=== PATIENT | female | born 1960 | race Caucasian/White ===

== ENCOUNTER 2019-04-16 11:24 | Inpatient (IN) | payer MEDICAID ==
[~2019-04-16] VITALS: Ht 170.2 cm; Wt 96.4 kg
[~2019-04-16 11:24] MED LIST: ESCI10TA61 PO; FAMO40TA7 PO; GEMF600T89 PO; GLIP5TAB13 PO; HYDR-4353 PO; LANS30CA56 PO; MEDR2.5T PO; METF500T PO; PRAV40TA3 PO; PRAZ1CAP5 PO; QUET-1 PO; QUET25TA PO; SAXA5TAB PO
--- NOTE | 2019-04-16 11:30 | NUR ---
PER DR. FOWLER, LOWER THE HEPARIN BOLUS FROM 1100 UNITS/HR TO 900 UNITS/HR, AND ADD THE DVT PTT FOR 1543.
[2019-04-16] MEDS ORDERED: fentaNYL/PF 50MCG/1 ML 2ML syringe IV ONE ×2 (12:05→13:10)
[2019-04-16] MEDS ORDERED: iohexol 350MG/ML 100ml bottle IV ONE (12:19)
[2019-04-16] MEDS ORDERED: iohexol 350 MG/ML 50ML vial IV ONE (12:19)
[2019-04-16 12:43] LABS: BASOPHILS # (AUTO) 0.1 X10'3 (0-0.2); BASOPHILS % (AUTO) 0.6 % (0-1); EOSINOPHILS # (AUTO) 0.2 X10'3 (0-0.9); EOSINOPHILS % (AUTO) 1.7 % (0-6); HEMATOCRIT 38.1 % (35.0-45.0); HEMOGLOBIN 13.3 g/dl (12.0-16.0); LYMPHOCYTES # (AUTO) 3.2 X10'3 (1.1-4.8); LYMPHOCYTES % (AUTO) 31.6 % (21-51); MEAN CORPUSCULAR HEMOGLOBIN 31.7 PG (27.0-31.0); MEAN CORPUSCULAR VOLUME 90.7 FL (78-98); MEAN PLATELET VOLUME 7.7 FL (7.4-10.4); MONOCYTES # (AUTO) 0.7 X10'3 (0-0.9); MONOCYTES % (AUTO) 6.6 % (2-12); NEUTROPHILS % (AUTO) 59.5 % (42-75); PLATELET COUNT 156 X10'3 (140-440); RED BLOOD COUNT 4.19 X10'6 (4.20-5.60); RED CELL DISTRIBUTION WIDTH 12.3 % (11.5-14.5); WHITE BLOOD COUNT 10.1 X10'3 (4.5-11.0)
[2019-04-16 12:59] LABS: ALANINE AMINOTRANSFERASE 26 U/L (12-78); ALBUMIN 2.4 G/DL (3.4-5.0); ALBUMIN/GLOBULIN RATIO 0.6 (1.1-1.5); ALKALINE PHOSPHATASE 100 IU/L (46-116); ANION GAP 7 (8-16); ASPARTATE AMINO TRANSFERASE 24 U/L (10-37); BILIRUBIN,TOTAL 0.6 MG/DL (0.1-1.0); BLOOD UREA NITROGEN 15 MG/DL (7-18); BUN/CREATININE RATIO 16.7 (6.6-38.0); CALCIUM 7.8 MG/DL (8.5-10.1); CHLORIDE 104 MMOL/L (99-107); CREATINE KINASE 388 U/L (26-192); GLUCOSE 206 MG/DL (70-104); POTASSIUM 3.9 MMOL/L (3.5-5.1); SODIUM 137 MMOL/L (135-145); TOTAL CARBON DIOXIDE 26.3 MMOL/L (24-32); TOTAL PROTEIN 6.4 G/DL (6.4-8.2); eGFR 64 ML/MIN
[2019-04-16] MEDS ORDERED: heparin 25,000 UNIT/250ml bag 250 ML IV SCH (13:19)
[2019-04-16] MEDS ORDERED: heparin 10,000 units/1 ML INJ IV ONE ×2 (13:20→13:45)
[2019-04-16] MEDS ORDERED: heparin 10,000 units/1 ML INJ IV PRN (13:20)
[2019-04-16] MEDS: fentaNYL/PF 50MCG/1 ML 2ML syringe IV PRN ×9 (13:38→22:57)
[2019-04-16] MEDS ORDERED: fentaNYL/PF 50MCG/1 ML 2ML syringe IV PRN (15:55)
[2019-04-16] MEDS ORDERED: heparin 1,000 UNITS/NS 500ml 500 ML ICATH ONE (15:55)
[2019-04-16] MEDS ORDERED: LIDOcaine 1%/PF 5ML 10 MG/ML VIAL SQ ONE (15:55)
[2019-04-16] MEDS ORDERED: LIDOcaine 1%/PF 5ML 10 MG/ML VIAL ONE (16:03)
[2019-04-16] MEDS ORDERED: midazolam 2 mg/2 ml injection ONE ×3 (16:03→17:35)
[2019-04-16] MEDS ORDERED: heparin 1,000 UNITS/NS 500ml 500 ML ONE ×2 (16:03→17:28)
[2019-04-16] MEDS ORDERED: fentaNYL/PF 50MCG/1 ML 2ML syringe ONE ×3 (16:03→17:35)
[2019-04-16] MEDS ORDERED: iohexol 300mg/ml 100ml inj. ONE (16:03)
--- NOTE | 2019-04-16 16:08 | NUR ---
SISTER: JABARI: [phone]
[2019-04-16] MEDS ORDERED: diphenhydrAMINE 50 mg/ml inj ONE (16:34)
[2019-04-16] MEDS ORDERED: tPA-cathflo 2 MG/2 ml IV flush ONE (17:28)
[2019-04-16] MEDS: heparin 1,000 UNITS/NS 500ml 500 ML IV SCH ×2 (17:53→20:51)
[2019-04-16] MEDS ORDERED: heparin 1,000 UNITS/NS 500ml 500 ML IV SCH (18:04)
--- NOTE | 2019-04-16 19:00 | NUR ---
Patient in room CICU 2011. I have received report from Shira DAVIS and had the opportunity to ask questions and assume patient care. Patient arrived VIA bed , IR nurses at bedside. No doctors orders in the system. Awaiting MD orders at this time.
--- NOTE | 2019-04-16 19:30 | NUR ---
Patient painful. Awaiting MD orders. At bedside with patient.
--- NOTE | 2019-04-16 19:45 | NUR ---
Carlito Vaca at bedside to assess patient.
[2019-04-16] MEDS ORDERED: potassium CL 10mEq/100ml bag 100 ML IV PRN (19:50)
[2019-04-16] MEDS ORDERED: ondansetron/PF 4mg/2ml inj IV PRN (19:50)
[2019-04-16] MEDS ORDERED: potassium Cl 20 mEq SR tablet PO PRN (19:50)
[2019-04-16] MEDS ORDERED: naloxone 0.4 mg/ml inj IV PRN (19:50)
[2019-04-16] MEDS ORDERED: magnesium hydroxide 30ml (MOM) UD suspension PO PRN (19:50)
[2019-04-16] MEDS ORDERED: acetaminophen 325mg tablet PO PRN (19:50)
[2019-04-16] MEDS ORDERED: proCHLORperazine 10 MG/2 ml inj IV PRN (19:50)
[2019-04-16] MEDS: K, MAG and/or Phos replacement - Verify level? MC SCH (19:50)
[2019-04-16 20:00] VITALS: BP 146/104
[2019-04-16] MEDS ORDERED: dextrose 50%-water 50ml dispensing syringe IV PRN ×2 (20:10)
[2019-04-16] MEDS ORDERED: dextrose ORAL solution 15 GM/59 ML bottle PO PRN ×2 (20:10)
[2019-04-16] MEDS ORDERED: MESSAGE TO PHARMACY PO ONE (20:10)
[2019-04-16] MEDS ORDERED: glucagon, human recombinant 1mg kit SUBCUT PRN (20:10)
[2019-04-16] MEDS: tPA-cathflo 2mg/2ml IV flush 4 MG in normal saline 100ml IV soln 100 ML ICATH SCH (20:49)
[2019-04-16 21:00] VITALS: BP 124/80
[2019-04-16] MEDS: insulin glargine (Lantus) pen - multi-dose SQ SCH (21:00)
[2019-04-16] MEDS ORDERED: quetiapine 100mg tablet PO SCH (21:00)
--- NOTE | 2019-04-16 21:00 | NUR ---
Patient has refused fuentes cath at this time.
[2019-04-16 21:32] LABS: HEMATOCRIT 38.3 % (35.0-45.0); HEMOGLOBIN 13.6 g/dl (12.0-16.0); MEAN CORPUSCULAR HEMOGLOBIN 32.4 PG (27.0-31.0); MEAN CORPUSCULAR HGB CONC 35.4 g/dL (33.0-36.5); MEAN CORPUSCULAR VOLUME 91.4 FL (78-98); MEAN PLATELET VOLUME 7.9 FL (7.4-10.4); PLATELET COUNT 133 X10'3 (140-440); RED BLOOD COUNT 4.19 X10'6 (4.20-5.60); RED CELL DISTRIBUTION WIDTH 12.4 % (11.5-14.5); WHITE BLOOD COUNT 9.9 X10'3 (4.5-11.0)
[2019-04-16 22:00] VITALS: BP 144/83
[2019-04-16 23:00] VITALS: BP 124/88
[2019-04-17] VITALS (22 sets, daily range): BP systolic 115–168; BP diastolic 74–96
[2019-04-17] MEDS: tPA-cathflo 2mg/2ml IV flush 4 MG in normal saline 100ml IV soln 100 ML ICATH SCH ×4 (01:26→22:46)
[2019-04-17] MEDS: fentaNYL/PF 50MCG/1 ML 2ML syringe IV PRN ×15 (01:29→23:30)
[2019-04-17 03:12] LABS: PARTIAL THROMBOPLASTIN TIME 28 SECONDS (22-32)
[2019-04-17 03:15] LABS: ALANINE AMINOTRANSFERASE 27 U/L (12-78); ALBUMIN 2.3 G/DL (3.4-5.0); ALBUMIN/GLOBULIN RATIO 0.6 (1.1-1.5); ALKALINE PHOSPHATASE 104 IU/L (46-116); ANION GAP 6 (8-16); ASPARTATE AMINO TRANSFERASE 29 U/L (10-37); BILIRUBIN,TOTAL 0.7 MG/DL (0.1-1.0); BLOOD UREA NITROGEN 9 MG/DL (7-18); CALCIUM 7.8 MG/DL (8.5-10.1); CHLORIDE 106 MMOL/L (99-107); CREATININE 0.82 MG/DL (0.40-0.90); GLUCOSE 241 MG/DL (70-104); MAGNESIUM 1.3 MG/DL (1.5-2.4); PHOSPHORUS 2.7 MG/DL (2.3-4.5); POTASSIUM 3.7 MMOL/L (3.5-5.1); SODIUM 139 MMOL/L (135-145); TOTAL CARBON DIOXIDE 26.8 MMOL/L (24-32); TOTAL PROTEIN 6.1 G/DL (6.4-8.2); eGFR 71 ML/MIN
--- NOTE | 2019-04-17 03:18 | NUR ---
Patient has been agitated and restless, complaining of pain most of the night. When nurse told the patient that they would be there in a minute because they were in another room pt stated to "Fuck Off" . Patient states that she hasn't been getting pain medication. Patient has been multiple times per MD order. Patient states that she wants to be medicated with pain medication prior to anyone touching her foot.
[2019-04-17 03:22] LABS: BASOPHILS % (AUTO) 0.3 % (0-1); EOSINOPHILS # (AUTO) 0.1 X10'3 (0-0.9); EOSINOPHILS % (AUTO) 0.8 % (0-6); HEMATOCRIT 37.3 % (35.0-45.0); HEMOGLOBIN 13.1 g/dl (12.0-16.0); LYMPHOCYTES % (AUTO) 22.6 % (21-51); MEAN CORPUSCULAR HEMOGLOBIN 32.2 PG (27.0-31.0); MEAN CORPUSCULAR VOLUME 91.9 FL (78-98); MEAN PLATELET VOLUME 7.6 FL (7.4-10.4); MONOCYTES # (AUTO) 0.7 X10'3 (0-0.9); MONOCYTES % (AUTO) 7.6 % (2-12); NEUTROPHILS % (AUTO) 68.7 % (42-75); PLATELET COUNT 129 X10'3 (140-440); RED BLOOD COUNT 4.06 X10'6 (4.20-5.60); RED CELL DISTRIBUTION WIDTH 12.6 % (11.5-14.5); WHITE BLOOD COUNT 8.7 X10'3 (4.5-11.0)
--- NOTE | 2019-04-17 04:19 | NUR ---
Pt thrashing around in bed, attempting to sit up. pt complaining about pt care and want her let foot wrapped with a lissa bandage. Educated patient on the importance of laying flat and not bending with sheath in.
[2019-04-17] MEDS: heparin 1,000 UNITS/NS 500ml 500 ML IV SCH ×2 (04:33→18:16)
--- NOTE | 2019-04-17 05:22 | NUR ---
Patient attempting to sit up in bed. Educated on risks of sitting up with sheath in. Patient states " I know I can bleed to and I wish I would!!" Patient complaining of pain. Medicated for pain per MD order.
--- NOTE | 2019-04-17 06:25 | NUR ---
Problems reprioritized. Patient report given, questions answered & plan of care reviewed with Suzy DAVIS.
[2019-04-17] MEDS: pantoprazole 40 MG vial IV SCH (07:11)
[2019-04-17] MEDS: ESCITALOPRAM OXALATE 5 MG TABLET PO SCH (07:12)
[2019-04-17] MEDS: K, MAG and/or Phos replacement - Verify level? MC SCH (07:13)
[2019-04-17] MEDS ORDERED: medroxyprogesterone acet. 2.5mg tablet PO SCH (08:00)
[2019-04-17] MEDS ORDERED: gemfibrozil 600mg tablet PO SCH (08:00)
[2019-04-17] MEDS ORDERED: QUEtiapine 25mg tablet PO SCH (08:00)
[2019-04-17] MEDS ORDERED: prazosin 1mg capsule PO SCH (08:00)
[2019-04-17] MEDS: insulin Lispro (HumaLOG) vial - multi-dose SQ SCH ×2 (08:43→15:33)
[2019-04-17 09:29] LABS: HEMATOCRIT 36.9 % (35.0-45.0); HEMOGLOBIN 12.9 g/dl (12.0-16.0); MEAN CORPUSCULAR HGB CONC 34.9 g/dL (33.0-36.5); MEAN CORPUSCULAR VOLUME 91.5 FL (78-98); PLATELET COUNT 126 X10'3 (140-440); RED BLOOD COUNT 4.04 X10'6 (4.20-5.60); RED CELL DISTRIBUTION WIDTH 12.6 % (11.5-14.5); WHITE BLOOD COUNT 8.9 X10'3 (4.5-11.0)
[2019-04-17] MEDS ORDERED: iohexol 300mg/ml 100ml inj. ONE (13:01)
[2019-04-17] MEDS ORDERED: midazolam 2 mg/2 ml injection ONE (14:13)
[2019-04-17] MEDS ORDERED: diphenhydrAMINE 50 mg/ml inj ONE (14:13)
[2019-04-17] MEDS ORDERED: fentaNYL/PF 50MCG/1 ML 2ML syringe ONE (14:14)
--- NOTE | 2019-04-17 16:08 | NUR ---
DM consult, Hgb A1c is 9.3%. Patient needs written DM education handout with verbal review and referral to outpatient DM education class on Wednesday. Attempted bedside visit, patient was sedated s/p procedure. Will provide education prior to discharge. Addendum: 04/17/19 at [address] Amended: Links added.
[2019-04-17] MEDS ORDERED: ARIP10TA17 PO (16:28)
[2019-04-17] MEDS ORDERED: PRIM50TA3 PO (16:34)
[2019-04-17] MEDS ORDERED: CYAN-51 PO (16:34)
[2019-04-17] MEDS ORDERED: TIOT4MIS2 IH (16:34)
[2019-04-17] MEDS ORDERED: ALBU1.257 NEB (16:34)
[2019-04-17] MEDS ORDERED: CHOL500061 PO (16:38)
[2019-04-17 16:45] LABS: HEMATOCRIT 37.7 % (35.0-45.0); MEAN CORPUSCULAR HGB CONC 34.5 g/dL (33.0-36.5); MEAN CORPUSCULAR VOLUME 92.6 FL (78-98); MEAN PLATELET VOLUME 8.1 FL (7.4-10.4); PLATELET COUNT 121 X10'3 (140-440); RED BLOOD COUNT 4.08 X10'6 (4.20-5.60); RED CELL DISTRIBUTION WIDTH 12.5 % (11.5-14.5); WHITE BLOOD COUNT 9.4 X10'3 (4.5-11.0)
--- NOTE | 2019-04-17 18:45 | NUR ---
RN Note -Attempted to assess pulses with Doppler after explaining procedure to pt. Pt yelled to stop touching her. Explained that assessing pulses is an important part of revascularization procedures. Pt states that she only wants to be treated on her own terms, though when asked to explain, she was not able to articulate anything more than phrases like, "you have to respect my rights," and "we can do things the way I want them done," and "help me."
[2019-04-17] MEDS: insulin glargine (Lantus) pen - multi-dose SQ SCH ×2 (21:00→23:23)
[2019-04-17 22:20] LABS: HEMOGLOBIN 12.9 g/dl (12.0-16.0); MEAN CORPUSCULAR HEMOGLOBIN 32.3 PG (27.0-31.0); MEAN CORPUSCULAR HGB CONC 34.9 g/dL (33.0-36.5); MEAN CORPUSCULAR VOLUME 92.7 FL (78-98); MEAN PLATELET VOLUME 8.6 FL (7.4-10.4); PLATELET COUNT 122 X10'3 (140-440); RED BLOOD COUNT 3.99 X10'6 (4.20-5.60); RED CELL DISTRIBUTION WIDTH 12.5 % (11.5-14.5); WHITE BLOOD COUNT 10.1 X10'3 (4.5-11.0)
[2019-04-17] MEDS ORDERED: temazepam 15mg capsule PO PRN (23:10)
[2019-04-18] VITALS (22 sets, daily range): BP systolic 117–166; BP diastolic 69–87
[2019-04-18] MEDS: fentaNYL/PF 50MCG/1 ML 2ML syringe IV PRN ×6 (00:51→14:38)
[2019-04-18] MEDS ORDERED: heparin 1,000 UNITS/NS 500ml 500 ML IV SCH (04:27)
[2019-04-18 05:13] LABS: BASOPHILS % (AUTO) 0.3 % (0-1); EOSINOPHILS % (AUTO) 0.4 % (0-6); HEMATOCRIT 35.9 % (35.0-45.0); HEMOGLOBIN 12.6 g/dl (12.0-16.0); LYMPHOCYTES # (AUTO) 1.8 X10'3 (1.1-4.8); LYMPHOCYTES % (AUTO) 17.4 % (21-51); MEAN CORPUSCULAR HEMOGLOBIN 32.5 PG (27.0-31.0); MEAN CORPUSCULAR HGB CONC 35.2 g/dL (33.0-36.5); MEAN CORPUSCULAR VOLUME 92.3 FL (78-98); MEAN PLATELET VOLUME 8.3 FL (7.4-10.4); MONOCYTES # (AUTO) 0.9 X10'3 (0-0.9); MONOCYTES % (AUTO) 8.7 % (2-12); NEUTROPHILS # (AUTO) 7.4 X10'3 (1.8-7.7); NEUTROPHILS % (AUTO) 73.2 % (42-75); PLATELET COUNT 121 X10'3 (140-440); RED BLOOD COUNT 3.89 X10'6 (4.20-5.60); RED CELL DISTRIBUTION WIDTH 12.4 % (11.5-14.5); WHITE BLOOD COUNT 10.2 X10'3 (4.5-11.0)
[2019-04-18 05:16] LABS: ALANINE AMINOTRANSFERASE 57 U/L (12-78); ALBUMIN/GLOBULIN RATIO 0.5 (1.1-1.5); ALKALINE PHOSPHATASE 206 IU/L (46-116); ANION GAP 10 (8-16); ASPARTATE AMINO TRANSFERASE 95 U/L (10-37); BLOOD UREA NITROGEN 5 MG/DL (7-18); BUN/CREATININE RATIO 6.7 (6.6-38.0); CALCIUM 7.8 MG/DL (8.5-10.1); CHLORIDE 102 MMOL/L (99-107); CREATININE 0.75 MG/DL (0.40-0.90); GLUCOSE 174 MG/DL (70-104); MAGNESIUM 1.3 MG/DL (1.5-2.4); PHOSPHORUS 1.7 MG/DL (2.3-4.5); POTASSIUM 3.2 MMOL/L (3.5-5.1); SODIUM 138 MMOL/L (135-145); TOTAL CARBON DIOXIDE 26.2 MMOL/L (24-32); TOTAL PROTEIN 6.3 G/DL (6.4-8.2); eGFR 79 ML/MIN
--- NOTE | 2019-04-18 06:31 | NUR ---
Patient in room CICU 2011. I have received report from Mac RN and had the opportunity to ask questions and assume patient care.
[2019-04-18] MEDS: potassium CL 10mEq/100ml bag 100 ML IV PRN ×4 (06:47→12:50)
[2019-04-18] MEDS ORDERED: iohexol 300 MG/1 ML 50ml polymer ONE (07:20)
--- NOTE | 2019-04-18 07:43 | NUR ---
spring forger Josie looked at sheath site. oozing without hematoma. pt to IR; VSS
[2019-04-18] MEDS: K, MAG and/or Phos replacement - Verify level? MC SCH (08:00)
[2019-04-18] MEDS ORDERED: normal saline 1000ml 1,000 ML IV SCH (08:20)
--- NOTE | 2019-04-18 08:57 | NUR ---
pt back from IR. right groin site CDI; good palpable pedal pulses on right foot; left pedal pulse doppler. VSS
[2019-04-18 09:11] LABS: HEMATOCRIT 36.4 % (35.0-45.0); HEMOGLOBIN 12.6 g/dl (12.0-16.0); MEAN CORPUSCULAR HEMOGLOBIN 31.9 PG (27.0-31.0); MEAN CORPUSCULAR HGB CONC 34.6 g/dL (33.0-36.5); MEAN CORPUSCULAR VOLUME 92.2 FL (78-98); MEAN PLATELET VOLUME 8.1 FL (7.4-10.4); PLATELET COUNT 123 X10'3 (140-440); RED BLOOD COUNT 3.95 X10'6 (4.20-5.60); RED CELL DISTRIBUTION WIDTH 12.6 % (11.5-14.5); WHITE BLOOD COUNT 11.1 X10'3 (4.5-11.0)
[2019-04-18] MEDS: pantoprazole 40 MG vial IV SCH (09:49)
[2019-04-18] MEDS: ESCITALOPRAM OXALATE 5 MG TABLET PO SCH ×2 (09:50→09:55)
[2019-04-18] MEDS: enoxaparin 100mg/ml syringe SUBCUT SCH ×2 (09:50→20:22)
--- NOTE | 2019-04-18 10:43 | NUR ---
notified Dr. Marquis of pt's Magnesium level of 1.3; no new orders received.
[2019-04-18] MEDS: gabapentin 100mg capsule PO SCH ×2 (13:04→20:19)
--- NOTE | 2019-04-18 14:02 | NUR ---
awaiting pt insulin from pharmacy. will continue to monitor.
--- NOTE | 2019-04-18 14:42 | NUR ---
paged social insurance analyst for social insurance analyst consult; Josie Zurita RN needs to speak with them in regards to patient. Will try back if I don't hear from social insurance analyst.
--- NOTE | 2019-04-18 15:17 | NUR ---
Josie Zurita RN spoke to Sandra in [employer] media and crm. Sandra from shipping services sales representative at bedside and patient not answering questions. patient become agitated that she was being asked questions and that her foot needed to be placed back in soft splint. pt began taking off soft splint and cardiac monitoring. patient agreed on keeping the soft splint and cardiac monitoring in place after being educated about the importance. patient became upset stating "at the previous hospital I was at the call light was kept from me. My hair has a knot in it because of all my thrashing around." patient has call light in reach and uses frequently. will continue to monitor.
[2019-04-18 15:33] LABS: HEMATOCRIT 36.1 % (35.0-45.0); HEMOGLOBIN 12.4 g/dl (12.0-16.0); MEAN CORPUSCULAR HEMOGLOBIN 31.9 PG (27.0-31.0); MEAN CORPUSCULAR HGB CONC 34.4 g/dL (33.0-36.5); MEAN CORPUSCULAR VOLUME 92.7 FL (78-98); MEAN PLATELET VOLUME 8.4 FL (7.4-10.4); PLATELET COUNT 129 X10'3 (140-440); RED BLOOD COUNT 3.89 X10'6 (4.20-5.60); RED CELL DISTRIBUTION WIDTH 12.6 % (11.5-14.5)
--- NOTE | 2019-04-18 16:36 | NUR ---
pt report given to Megan DAVIS; all questions answered.
--- NOTE | 2019-04-18 17:00 | NUR ---
pt transferred to room 350 via hospital bed with all belongings.
--- NOTE | 2019-04-18 18:56 | NUR ---
AT 1650 Received report from CICU nurse. Patient in room 350B report given, questions answered & plan of care reviewed with Rere DAVIS.
--- NOTE | 2019-04-18 19:09 | NUR ---
Patient in room [facility]. I have received report from Janet DAVIS and had the opportunity to ask questions and assume patient care.
[2019-04-18] MEDS: insulin Lispro (HumaLOG) vial - multi-dose SQ SCH (19:20)
[2019-04-18 20:53] LABS: HEMATOCRIT 34.3 % (35.0-45.0); HEMOGLOBIN 11.9 g/dl (12.0-16.0); MEAN CORPUSCULAR HGB CONC 34.7 g/dL (33.0-36.5); MEAN CORPUSCULAR VOLUME 92.1 FL (78-98); MEAN PLATELET VOLUME 8.1 FL (7.4-10.4); PLATELET COUNT 130 X10'3 (140-440); RED BLOOD COUNT 3.73 X10'6 (4.20-5.60); RED CELL DISTRIBUTION WIDTH 12.1 % (11.5-14.5); WHITE BLOOD COUNT 11.1 X10'3 (4.5-11.0)
[2019-04-18] MEDS: insulin glargine (Lantus) pen - multi-dose SQ SCH (21:40)
[2019-04-19] VITALS: BP 136/85
[2019-04-19] MEDS: acetaminophen 325mg tablet PO PRN ×2 (01:01→22:24)
[2019-04-19] MEDS: temazepam 15mg capsule PO PRN (01:37)
[2019-04-19 05:25] LABS: BASOPHILS % (AUTO) 0.4 % (0-1); EOSINOPHILS # (AUTO) 0.1 X10'3 (0-0.9); HEMOGLOBIN 12.2 g/dl (12.0-16.0); LYMPHOCYTES # (AUTO) 2.2 X10'3 (1.1-4.8); LYMPHOCYTES % (AUTO) 20.1 % (21-51); MEAN CORPUSCULAR HGB CONC 34.7 g/dL (33.0-36.5); MEAN CORPUSCULAR VOLUME 92.3 FL (78-98); MEAN PLATELET VOLUME 8.4 FL (7.4-10.4); MONOCYTES # (AUTO) 0.9 X10'3 (0-0.9); MONOCYTES % (AUTO) 8.6 % (2-12); NEUTROPHILS # (AUTO) 7.6 X10'3 (1.8-7.7); NEUTROPHILS % (AUTO) 69.9 % (42-75); PLATELET COUNT 141 X10'3 (140-440); RED CELL DISTRIBUTION WIDTH 12.7 % (11.5-14.5); WHITE BLOOD COUNT 10.9 X10'3 (4.5-11.0)
[2019-04-19 05:32] LABS: ALANINE AMINOTRANSFERASE 45 U/L (12-78); ALBUMIN 1.9 G/DL (3.4-5.0); ALBUMIN/GLOBULIN RATIO 0.5 (1.1-1.5); ALKALINE PHOSPHATASE 211 IU/L (46-116); ANION GAP 3 (8-16); ASPARTATE AMINO TRANSFERASE 58 U/L (10-37); BILIRUBIN,TOTAL 0.8 MG/DL (0.1-1.0); BLOOD UREA NITROGEN 7 MG/DL (7-18); BUN/CREATININE RATIO 8.4 (6.6-38.0); CALCIUM 8.5 MG/DL (8.5-10.1); CHLORIDE 103 MMOL/L (99-107); CREATININE 0.83 MG/DL (0.40-0.90); GLUCOSE 144 MG/DL (70-104); MAGNESIUM 1.4 MG/DL (1.5-2.4); PHOSPHORUS 1.5 MG/DL (2.3-4.5); POTASSIUM 3.1 MMOL/L (3.5-5.1); SODIUM 141 MMOL/L (135-145); TOTAL CARBON DIOXIDE 35.1 MMOL/L (24-32); TOTAL PROTEIN 6.1 G/DL (6.4-8.2); eGFR 70 ML/MIN
--- NOTE | 2019-04-19 06:31 | NUR ---
Problems reprioritized. Patient report given, questions answered & plan of care reviewed with Masha DAVIS.
--- NOTE | 2019-04-19 06:34 | NUR ---
Patient in room [facility]. I have received report from Janet DAVIS and had the opportunity to ask questions and assume patient care. Addendum: 04/19/19 at 0649 by Zuleima Loredo RN entered incorrect time the correct time is 1830 on 04-18-19
--- NOTE | 2019-04-19 06:37 | NUR ---
Patient in room [facility]. I have received report from RYAN Jernigan and had the opportunity to ask questions and assume patient care.
--- NOTE | 2019-04-19 06:49 | NUR ---
Problems reprioritized. Patient report given, questions answered & plan of care reviewed with Masha DAVIS.
[2019-04-19] MEDS ORDERED: pantoprazole 40mg Tablet.DR PO SCH (07:30)
[2019-04-19 08:00] VITALS: BP 177/76
[2019-04-19] MEDS: K, MAG and/or Phos replacement - Verify level? MC SCH (08:00)
[2019-04-19] MEDS: pantoprazole 40mg Tablet.DR PO SCH (08:56)
[2019-04-19] MEDS: gabapentin 100mg capsule PO SCH ×3 (08:56→22:14)
[2019-04-19] MEDS: ESCITALOPRAM OXALATE 5 MG TABLET PO SCH (08:56)
[2019-04-19] MEDS: potassium Cl 20 mEq SR tablet PO PRN ×2 (08:56→13:37)
[2019-04-19] MEDS: enoxaparin 100mg/ml syringe SUBCUT SCH ×2 (08:57→19:46)
[2019-04-19] MEDS: insulin Lispro (HumaLOG) vial - multi-dose SQ SCH ×3 (09:17→22:17)
[2019-04-19 11:00] VITALS: BP 144/67
--- NOTE | 2019-04-19 19:26 | NUR ---
Problems reprioritized. Patient report given, questions answered & plan of care reviewed with RYAN Williamson.
[2019-04-19 20:00] VITALS: BP 159/84
[2019-04-19] MEDS: insulin glargine (Lantus) pen - multi-dose SQ SCH (22:21)
[2019-04-20] VITALS: BP 141/87
[2019-04-20 04:00] VITALS: BP 159/84
[2019-04-20 05:32] LABS: BASOPHILS % (AUTO) 0.4 % (0-1); EOSINOPHILS # (AUTO) 0.1 X10'3 (0-0.9); EOSINOPHILS % (AUTO) 0.9 % (0-6); HEMATOCRIT 33.3 % (35.0-45.0); HEMOGLOBIN 11.7 g/dl (12.0-16.0); LYMPHOCYTES # (AUTO) 1.4 X10'3 (1.1-4.8); LYMPHOCYTES % (AUTO) 15.1 % (21-51); MEAN CORPUSCULAR HEMOGLOBIN 32.4 PG (27.0-31.0); MEAN CORPUSCULAR HGB CONC 35.1 g/dL (33.0-36.5); MEAN CORPUSCULAR VOLUME 92.2 FL (78-98); MEAN PLATELET VOLUME 8.2 FL (7.4-10.4); MONOCYTES # (AUTO) 0.9 X10'3 (0-0.9); MONOCYTES % (AUTO) 9.1 % (2-12); NEUTROPHILS # (AUTO) 7.1 X10'3 (1.8-7.7); NEUTROPHILS % (AUTO) 74.5 % (42-75); PLATELET COUNT 184 X10'3 (140-440); RED BLOOD COUNT 3.61 X10'6 (4.20-5.60); RED CELL DISTRIBUTION WIDTH 12.4 % (11.5-14.5); WHITE BLOOD COUNT 9.6 X10'3 (4.5-11.0)
[2019-04-20 05:58] LABS: ALANINE AMINOTRANSFERASE 38 U/L (12-78); ALBUMIN 1.7 G/DL (3.4-5.0); ALBUMIN/GLOBULIN RATIO 0.4 (1.1-1.5); ALKALINE PHOSPHATASE 213 IU/L (46-116); ANION GAP 5 (8-16); ASPARTATE AMINO TRANSFERASE 43 U/L (10-37); BILIRUBIN,TOTAL 0.6 MG/DL (0.1-1.0); BLOOD UREA NITROGEN 8 MG/DL (7-18); BUN/CREATININE RATIO 11.4 (6.6-38.0); CALCIUM 8.5 MG/DL (8.5-10.1); CHLORIDE 102 MMOL/L (99-107); GLUCOSE 186 MG/DL (70-104); MAGNESIUM 1.4 MG/DL (1.5-2.4); PHOSPHORUS 1.8 MG/DL (2.3-4.5); POTASSIUM 3.1 MMOL/L (3.5-5.1); SODIUM 140 MMOL/L (135-145); TOTAL CARBON DIOXIDE 33.5 MMOL/L (24-32); TOTAL PROTEIN 6.4 G/DL (6.4-8.2); eGFR 85 ML/MIN
[2019-04-20 06:00] VITALS: BP 162/80
--- NOTE | 2019-04-20 06:38 | NUR ---
Patient in room [facility]. I have received report from Jen. Mahin RN and had the opportunity to ask questions and assume patient care.
[2019-04-20] MEDS: K, MAG and/or Phos replacement - Verify level? MC SCH (07:25)
[2019-04-20] MEDS: gabapentin 100mg capsule PO SCH ×3 (07:58→19:44)
[2019-04-20] MEDS: pantoprazole 40mg Tablet.DR PO SCH (07:58)
[2019-04-20] MEDS: potassium Cl 20 mEq SR tablet PO PRN ×3 (07:58→17:32)
[2019-04-20] MEDS: ESCITALOPRAM OXALATE 5 MG TABLET PO SCH (07:58)
[2019-04-20] MEDS: enoxaparin 100mg/ml syringe SUBCUT SCH (07:59)
[2019-04-20] MEDS: HYDROcodone/acetaminophen 10/325mg tab PO PRN ×3 (08:03→19:43)
[2019-04-20] MEDS: insulin Lispro (HumaLOG) vial - multi-dose SQ SCH ×3 (09:00→19:25)
[2019-04-20] MEDS ORDERED: pneumococcal 23-VAL P-sac vacc 25 mcg/0.5ml vial IMVAC ONE (10:00)
[2019-04-20 12:00] VITALS: BP 92/49
--- NOTE | 2019-04-20 18:13 | NUR ---
Problems reprioritized. Patient report given, questions answered & plan of care reviewed with RYAN Olivo.
--- NOTE | 2019-04-20 18:30 | NUR ---
Patient in room [facility]. I have received report from MELODY DAVIS and had the opportunity to ask questions and assume patient care.
[2019-04-20] MEDS: apixaban 5mg tablet PO SCH (19:44)
[2019-04-20 20:00] VITALS: BP 147/82
[2019-04-20] MEDS: insulin glargine (Lantus) pen - multi-dose SQ SCH (22:09)
[2019-04-21] VITALS: BP 144/77
[2019-04-21] MEDS: HYDROcodone/acetaminophen 10/325mg tab PO PRN ×4 (01:34→19:57)
[2019-04-21 06:12] LABS: BASOPHILS % (AUTO) 0.5 % (0-1); EOSINOPHILS # (AUTO) 0.1 X10'3 (0-0.9); EOSINOPHILS % (AUTO) 1.5 % (0-6); HEMATOCRIT 31.8 % (35.0-45.0); HEMOGLOBIN 11.1 g/dl (12.0-16.0); LYMPHOCYTES # (AUTO) 1.9 X10'3 (1.1-4.8); LYMPHOCYTES % (AUTO) 20.7 % (21-51); MEAN CORPUSCULAR HEMOGLOBIN 32.5 PG (27.0-31.0); MEAN CORPUSCULAR HGB CONC 34.8 g/dL (33.0-36.5); MEAN CORPUSCULAR VOLUME 93.2 FL (78-98); MEAN PLATELET VOLUME 8.1 FL (7.4-10.4); MONOCYTES # (AUTO) 0.7 X10'3 (0-0.9); MONOCYTES % (AUTO) 7.7 % (2-12); NEUTROPHILS # (AUTO) 6.2 X10'3 (1.8-7.7); NEUTROPHILS % (AUTO) 69.6 % (42-75); PLATELET COUNT 232 X10'3 (140-440); RED BLOOD COUNT 3.41 X10'6 (4.20-5.60); RED CELL DISTRIBUTION WIDTH 12.5 % (11.5-14.5); WHITE BLOOD COUNT 8.9 X10'3 (4.5-11.0)
--- NOTE | 2019-04-21 06:40 | NUR ---
Patient in room [facility]. I have received report from SHERYL DAVIS and had the opportunity to ask questions and assume patient care.
[2019-04-21 06:44] VITALS: BP 147/82
[2019-04-21 06:45] LABS: ALANINE AMINOTRANSFERASE 37 U/L (12-78); ALKALINE PHOSPHATASE 217 IU/L (46-116); ANION GAP 4 (8-16); ASPARTATE AMINO TRANSFERASE 43 U/L (10-37); BILIRUBIN,TOTAL 0.3 MG/DL (0.1-1.0); CHLORIDE 103 MMOL/L (99-107); GLUCOSE 151 MG/DL (70-104); MAGNESIUM 1.5 MG/DL (1.5-2.4); PHOSPHORUS 2.3 MG/DL (2.3-4.5); POTASSIUM 3.5 MMOL/L (3.5-5.1); SODIUM 140 MMOL/L (135-145); TOTAL PROTEIN 6.3 G/DL (6.4-8.2)
[2019-04-21 06:47] LABS: ALBUMIN 1.6 G/DL (3.4-5.0); ALBUMIN/GLOBULIN RATIO 0.3 (1.1-1.5)
[2019-04-21 07:00] VITALS: BP 120/87
[2019-04-21 07:02] LABS: BLOOD UREA NITROGEN 15 MG/DL (7-18); BUN/CREATININE RATIO 17.2 (6.6-38.0); CREATININE 0.87 MG/DL (0.40-0.90); eGFR 66 ML/MIN
[2019-04-21] MEDS: K, MAG and/or Phos replacement - Verify level? MC SCH (08:00)
[2019-04-21] MEDS: gabapentin 100mg capsule PO SCH ×3 (08:16→22:07)
[2019-04-21] MEDS: apixaban 5mg tablet PO SCH ×2 (08:16→19:13)
[2019-04-21] MEDS: pantoprazole 40mg Tablet.DR PO SCH (08:16)
[2019-04-21] MEDS: ESCITALOPRAM OXALATE 5 MG TABLET PO SCH (08:17)
[2019-04-21] MEDS: insulin Lispro (HumaLOG) vial - multi-dose SQ SCH ×3 (08:40→19:12)
--- NOTE | 2019-04-21 15:57 | NUR ---
Initial: Pt admit with PVD and claudication left leg. Pt MD notes circulation has been restored to her foot. Patient seen at bedside states goes to the [facility] for DM management. Pt reports she "fell off the wagon" in that she has stopped taking her DM medications and states she has never checked her BG levels before. Pt reports no reason for this. Pt states her A1c previously was around seven, no recorded A1c hx to confirm this. Pt states that this admit has been a "wake up call" that will hopefully get her back to better managing her diabetes. Pt provided with written and verbal DM education with referral to outpatient DM class and RD contact information. Pt reports a low appetite despite currently documented with 75-100% PO intake meeting nutrient needs. Pt with no food preferences at this time. Pt denies food allergies and reports difficulty chewing d/t missing teeth however declines texture modification at this time. Pt denies constipation/diarrhea despite LBM 1/5 and declines nutrition intervention. Pt with MoM PRN not yet given. Will continue to follow. Recommendations: 1) Continue CHO controlled diet 2) Monitor need for ONS with reported low appetite 3) Routine bowel care; monitor need for additional 4) Wt per rx Addendum: 04/21/19 at [address] Amended: Links added.
[2019-04-21 17:54] VITALS: BP 156/82
--- NOTE | 2019-04-21 18:30 | NUR ---
Patient in room [facility]. I have received report from RYAN Negron and had the opportunity to ask questions and assume patient care. Pt resting with eyes closed. Addendum: 04/21/19 at 1905 by Viviana Bryant RN Amended: Links added.
--- NOTE | 2019-04-21 18:32 | NUR ---
Problems reprioritized. Patient report given, questions answered & plan of care reviewed with Amberly DAVIS.
[2019-04-21 19:00] VITALS: BP 104/60
--- NOTE | 2019-04-21 19:25 | NUR ---
pedal pulse with doppler, lings clear, occ clear sputum, bs +, bruise RLQ, Left foot edematous +2 reddened, elevated on pillow. Addendum: 04/21/19 at 1926 by Viviana Bryant RN Amended: Links added.
--- NOTE | 2019-04-21 21:00 | NUR ---
Sleeping rr wnl no complaints, Addendum: 04/21/19 at 2233 by Viviana Bryant RN Amended: Links added.
[2019-04-21] MEDS: insulin glargine (Lantus) pen - multi-dose SQ SCH (22:07)
--- NOTE | 2019-04-21 22:35 | NUR ---
Pt not putting any weight on left foot. Addendum: 04/21/19 at 2235 by Viviana Bryant RN Amended: Links added.
[2019-04-22] VITALS: BP 142/78
[2019-04-22] MEDS: HYDROcodone/acetaminophen 10/325mg tab PO PRN ×5 (05:02→23:41)
[2019-04-22 06:04] LABS: ALANINE AMINOTRANSFERASE 36 U/L (12-78); ALBUMIN 1.6 G/DL (3.4-5.0); ALBUMIN/GLOBULIN RATIO 0.3 (1.1-1.5); ALKALINE PHOSPHATASE 224 IU/L (46-116); ANION GAP 8 (8-16); ASPARTATE AMINO TRANSFERASE 35 U/L (10-37); BILIRUBIN,TOTAL 0.3 MG/DL (0.1-1.0); BLOOD UREA NITROGEN 10 MG/DL (7-18); BUN/CREATININE RATIO 12.5 (6.6-38.0); CALCIUM 8.7 MG/DL (8.5-10.1); CHLORIDE 102 MMOL/L (99-107); GLUCOSE 145 MG/DL (70-104); MAGNESIUM 1.5 MG/DL (1.5-2.4); PHOSPHORUS 2.8 MG/DL (2.3-4.5); POTASSIUM 3.2 MMOL/L (3.5-5.1); SODIUM 141 MMOL/L (135-145); TOTAL CARBON DIOXIDE 30.8 MMOL/L (24-32); TOTAL PROTEIN 6.5 G/DL (6.4-8.2); eGFR 73 ML/MIN
--- NOTE | 2019-04-22 06:30 | NUR ---
Patient in room [facility]. I have received report from Amberly DAVIS and had the opportunity to ask questions and assume patient care.
--- NOTE | 2019-04-22 06:38 | NUR ---
Problems reprioritized. Patient report given, questions answered & plan of care reviewed with RYAN Negron Addendum: 04/22/19 at 0639 by Viviana Bryant RN Amended: Links added.
[2019-04-22 07:28] VITALS: BP 118/78
[2019-04-22] MEDS: K, MAG and/or Phos replacement - Verify level? MC SCH (08:00)
[2019-04-22] MEDS: apixaban 5mg tablet PO SCH ×2 (08:07→19:30)
[2019-04-22] MEDS: gabapentin 100mg capsule PO SCH ×3 (08:08→22:01)
[2019-04-22] MEDS: pantoprazole 40mg Tablet.DR PO SCH (08:08)
[2019-04-22] MEDS: ESCITALOPRAM OXALATE 5 MG TABLET PO SCH (08:09)
[2019-04-22] MEDS: potassium Cl 20 mEq SR tablet PO PRN ×3 (08:12→23:41)
[2019-04-22] MEDS: insulin Lispro (HumaLOG) vial - multi-dose SQ SCH ×3 (08:48→19:34)
[2019-04-22 11:00] VITALS: BP 165/83
--- NOTE | 2019-04-22 18:19 | NUR ---
Problems reprioritized. Patient report given, questions answered & plan of care reviewed with Amberly DAVIS.
--- NOTE | 2019-04-22 18:36 | NUR ---
Patient in room [facility]. I have received report from RYAN Negron and had the opportunity to ask questions and assume patient care. Pt sitting up in bed eating dinner. c/o pain, norco given. Addendum: 04/22/19 at 1838 by Viviana Bryant RN Amended: Links added.
[2019-04-22 19:20] VITALS: BP 103/73
[2019-04-22] MEDS: temazepam 15mg capsule PO PRN (22:01)
[2019-04-22] MEDS: insulin glargine (Lantus) pen - multi-dose SQ SCH (22:14)
[2019-04-22 23:30] VITALS: BP 124/71
[2019-04-23] MEDS: HYDROcodone/acetaminophen 10/325mg tab PO PRN ×3 (04:17→13:29)
[2019-04-23 06:27] LABS: ALANINE AMINOTRANSFERASE 35 U/L (12-78); ALBUMIN 1.8 G/DL (3.4-5.0); ALBUMIN/GLOBULIN RATIO 0.3 (1.1-1.5); ALKALINE PHOSPHATASE 218 IU/L (46-116); ANION GAP 9 (8-16); ASPARTATE AMINO TRANSFERASE 32 U/L (10-37); BILIRUBIN,TOTAL 0.3 MG/DL (0.1-1.0); BLOOD UREA NITROGEN 12 MG/DL (7-18); BUN/CREATININE RATIO 13.5 (6.6-38.0); CHLORIDE 103 MMOL/L (99-107); CREATININE 0.89 MG/DL (0.40-0.90); GLUCOSE 129 MG/DL (70-104); MAGNESIUM 1.5 MG/DL (1.5-2.4); PHOSPHORUS 3.6 MG/DL (2.3-4.5); POTASSIUM 3.8 MMOL/L (3.5-5.1); SODIUM 141 MMOL/L (135-145); TOTAL CARBON DIOXIDE 29.5 MMOL/L (24-32); TOTAL PROTEIN 7.1 G/DL (6.4-8.2); eGFR 65 ML/MIN
--- NOTE | 2019-04-23 06:30 | NUR ---
Patient in room [facility]. I have received report from YONY DAVIS and had the opportunity to ask questions and assume patient care.
--- NOTE | 2019-04-23 06:32 | NUR ---
Problems reprioritized. Patient report given, questions answered & plan of care reviewed with RYAN Negron. Addendum: 04/23/19 at 0632 by Viviana Bryant RN Amended: Links added.
[2019-04-23 07:28] VITALS: BP 132/85
[2019-04-23] MEDS: gabapentin 100mg capsule PO SCH ×2 (07:52→13:27)
[2019-04-23] MEDS: apixaban 5mg tablet PO SCH (07:53)
[2019-04-23] MEDS: pantoprazole 40mg Tablet.DR PO SCH (07:53)
[2019-04-23] MEDS: ESCITALOPRAM OXALATE 5 MG TABLET PO SCH (07:54)
[2019-04-23] MEDS: K, MAG and/or Phos replacement - Verify level? MC SCH (08:00)
[2019-04-23] MEDS: insulin Lispro (HumaLOG) vial - multi-dose SQ SCH (08:36)
[2019-04-23] MEDS ORDERED: HYDR-4353 PO (10:39)
[2019-04-23] MEDS ORDERED: GABA-530 PO (10:39)
[2019-04-23] MEDS ORDERED: APIX5TAB3 PO (10:39)
--- NOTE | 2019-04-23 14:25 | NUR ---
Patient discharged with new medication, patient expressed understanding of medication changes. Patient was given hard copy of narcotic Rx Patient knows to follow up with primary care physician. Patient left and stated " I am missing my moccasins, shirt, bra and jacket. Patient left with all other belongings at discharge. Patient left via wheelchair and then transported home via private vehicle. IVs out canula intact minimal bleeding.
== END 2019-04-23 15:07 | disposition home or self-care (01) | DRG 181 ==
LOC: ER 11:25 → CICU 2S 19:14 → SUR 3N 04-18 17:45
PROVIDERS: ADMIT Internal Medicine Critical Care Medicine; ATTEND Internal Medicine Critical Care Medicine
PROC: 047N3ZZ Dilation of Left Popliteal Artery, Percutaneous Approach (ICD-10-PCS; principal; 2019-04-16)
PROC: B4101ZZ Fluoroscopy of Abdominal Aorta using Low Osmolar Contrast (ICD-10-PCS; 2019-04-16)
PROC: 3E05317 Introduction of Other Thrombolytic into Peripheral Artery, Percutaneous Approach (ICD-10-PCS; 2019-04-16)
PROC: B4201ZZ Computerized Tomography (CT Scan) of Abdominal Aorta using Low Osmolar Contrast (ICD-10-PCS; 2019-04-16)
PROC: B42H1ZZ Computerized Tomography (CT Scan) of Bilateral Lower Extremity Arteries using Low Osmolar Contrast (ICD-10-PCS; 2019-04-16)
PROC: B41G1ZZ Fluoroscopy of Left Lower Extremity Arteries using Low Osmolar Contrast (ICD-10-PCS; 2019-04-17)
PROC: B41G1ZZ Fluoroscopy of Left Lower Extremity Arteries using Low Osmolar Contrast (ICD-10-PCS; 2019-04-18)
PROC: 3E0234Z Introduction of Serum, Toxoid and Vaccine into Muscle, Percutaneous Approach (ICD-10-PCS; 2019-04-20)
DX: I70.292 Other atherosclerosis of native arteries of extremities, left leg (principal); E11.51 Type 2 diabetes mellitus with diabetic peripheral angiopathy without gangrene; E78.00 Pure hypercholesterolemia, unspecified; J45.909 Unspecified asthma, uncomplicated; F17.200 Nicotine dependence, unspecified, uncomplicated; F32.9 Major depressive disorder, single episode, unspecified; F41.9 Anxiety disorder, unspecified; M54.9 Dorsalgia, unspecified; G89.29 Other chronic pain; K21.9 Gastro-esophageal reflux disease without esophagitis; Z79.899 Other long term (current) drug therapy; Z23 Encounter for immunization; Z88.8 Allergy status to other drugs, medicaments and biological substances; Z59.0 Homelessness; Z90.49 Acquired absence of other specified parts of digestive tract; Z98.51 Tubal ligation status
CPT/HCPCS: 36247; 36415; 37211; 37213; 37214; 37246; 71045; 73706; 75716; 76937; 80053; 82550; 82948; 83036; 83605; 83735; 84100; 85025; 85027; 85384; 85610; 85730; 87081; 90732; 93005; 96365; 96375; 96376; 97116; 97161; 97530; 99152; 99153; 99285; A6213; C1725; C1729; C1751; C1760; C1769; C1894; C9113; G0378; J1200; J1644; J1650; J1815; J2250; J2405; J2997; J3010; J3480; Q9967

== ENCOUNTER 2021-06-04 14:19 | Outpatient (CLI) | payer MEDICAID ==
[~2021-06-04 14:19] MED LIST changes: +ALBU1.257 NEB; +APIX5TAB3 PO; +ARIP10TA57 PO; +CHOL500061 PO; +CYAN-51 PO; +ESCI-8 PO; -ESCI10TA61 PO; +GABA-530 PO; -LANS30CA56 PO; -MEDR2.5T PO; -PRAV40TA3 PO; -PRAZ1CAP5 PO; +PRIM50TA5 PO; -QUET-1 PO; -QUET25TA PO; -SAXA5TAB PO; +TIOT4MIS2 IH
== END 2021-06-04 23:59 | disposition home or self-care (01) ==
LOC: RT 14:19
PROVIDERS: ATTEND Internal Medicine Pulmonary Disease
DX: J44.9 Chronic obstructive pulmonary disease, unspecified (principal); R06.00 Dyspnea, unspecified; I26.99 Other pulmonary embolism without acute cor pulmonale
CPT/HCPCS: 94010; 94727; 94729

== ENCOUNTER 2022-04-10 09:54 | Day surgery (SDC) | payer MEDICAID ==
[~2022-04-10] VITALS: Ht 170.2 cm; Wt 97.3 kg
[2022-04-10 10:00] VITALS: BP 100/69
[2022-04-10] MEDS ORDERED: MIDAZolam 1 MG/ML 5ML VIAL ONE (10:07)
[2022-04-10] MEDS ORDERED: FENTANYL CITRATE/PF 50 MCG/1 ML VIAL ONE (10:07)
[2022-04-10] MEDS ORDERED: INSULIN BASAGLAR SQ (10:34)
[2022-04-10] MEDS ORDERED: OMEP20CA16 PO (10:34)
[2022-04-10] MEDS ORDERED: LIRA0.6P2 SQ (10:34)
[2022-04-10] MEDS ORDERED: ARIP10TA15 PO (10:34)
[2022-04-10 11:55] VITALS: BP 96/73
[2022-04-10 12:05] VITALS: BP 96/77
[2022-04-10 12:10] VITALS: BP 108/77
== END 2022-04-10 12:35 | disposition home or self-care (01) ==
LOC: GI LAB 09:54
PROVIDERS: ATTEND Internal Medicine Gastroenterology
DX: Z08 Encounter for follow-up examination after completed treatment for malignant neoplasm (principal); D12.3 Benign neoplasm of transverse colon; D12.5 Benign neoplasm of sigmoid colon; K64.8 Other hemorrhoids; Z86.010 Personal history of colon polyps; Z79.899 Other long term (current) drug therapy
CPT/HCPCS: 45380; 45385; 99152; J2250; J3010; J7030; Z7512; 99153; A4620; C1889

== ENCOUNTER 2023-01-15 10:10 | Outpatient (CLI) | payer MEDICAID ==
[~2023-01-15] VITALS: Ht 170.2 cm; Wt 102.1 kg
[~2023-01-15 10:10] MED LIST changes: +ARIP10TA15 PO; -CYAN-51 PO; -ESCI-8 PO; -FAMO40TA7 PO; -GABA-530 PO; -GEMF600T89 PO; -HYDR-4353 PO; +INSULIN BASAGLAR SQ; +LIRA0.6P2 SQ; -METF500T PO; +OMEP20CA16 PO; -PRIM50TA5 PO
[2023-01-15] MEDS ORDERED: albuterol 2.5 MG/3 ML nebule NEB ONE (10:35)
[2023-01-15 11:10] VITALS: PULSE 77; RESP 16; O2SAT 96
== END 2023-01-15 23:59 | disposition home or self-care (01) ==
LOC: RT 10:10
PROVIDERS: ATTEND Internal Medicine Pulmonary Disease
DX: J44.9 Chronic obstructive pulmonary disease, unspecified (principal); R06.09 Other forms of dyspnea
CPT/HCPCS: 94060; 94727; 94729; 94760